=== PATIENT | male | born 1980 | race Caucasian/White ===

== ENCOUNTER 2019-05-30 07:55 | Emergency (ER) | payer OTHER ==
[~2019-05-30] VITALS: Ht 177.8 cm; Wt 72.1 kg
[~2019-05-30 07:55] MED LIST: ACET325T53 PO; HYDR-3972 PO; LACT1CAP72 PO
[2019-05-30 08:43] VITALS: BP 130/98
--- NOTE | 2019-05-30 08:43 | NUR ---
patient left incustody accompanied by [employer] in no distress.
== END 2019-05-30 08:43 ==
LOC: ER 07:56
DX: S80.921A Unspecified superficial injury of right lower leg, initial encounter (principal); Z98.890 Other specified postprocedural states; Z91.048 Other nonmedicinal substance allergy status; Z79.899 Other long term (current) drug therapy; X58.XXXA Exposure to other specified factors, initial encounter; Y93.89 Activity, other specified; Y92.89 Other specified places as the place of occurrence of the external cause; Y99.8 Other external cause status